=== PATIENT | female | born 1965 | race Caucasian/White ===

== ENCOUNTER 2023-05-24 15:54 | Emergency (ER) | payer OTHER, SELFPAY ==
[2023-05-24 15:57] VITALS: BP 182/117
[2023-05-24 16:01] LABS: Glucose - Point of Care 84 mg/dl (70-99)
[2023-05-24 16:23] VITALS: BMI 19.5
--- NOTE | 2023-05-24 16:27 | EDRN ---
Charlie TODD in room w/ pt at this time.
[2023-05-24 16:32] VITALS: BP 149/103
--- NOTE | 2023-05-24 16:33 | ED.GENMED ---
History of Present Illness
General
Chief Complaint: Skin Problem
Source: patient
Exam Limitations: none
Time Seen by Provider: 05/24/23 16:22
Travel History
Have you had any contact with someone who has COVID-19?: No
Do you have any symptoms of coronavirus? Fever > 100 degrees, chills, cough, shortness of breath, sore throat, loss of taste or smell, muscle aches, or headache?: No
History of Present Illness
History of Present Illness:
57-year-old female presents with sister stating that she had painful protrusion of tissue out of her rectum prior to arrival. She states when she sits on the toilet it comes out. She has been straining to move her bowels recently. She has
manic-depressive disorder and bipolar. She lives by herself. Occasionally she uses MiraLAX for constipation. There is no vomiting or fever. She notes of blood and pus coming out of her rectum. This has been going on for 2 days however the
protrusion of tissue started today
Phy Exam
Physical Exam
Physical Exam:
General: Well-appearing female no acute respiratory distress
HEENT: Normocephalic atraumatic
Heart: Regular rate and rhythm no murmurs
Lungs: Clear to auscultation bilaterally no wheezing
Abdomen is soft mildly distended but nontender normal bowel sounds no guarding or rebound Sister states her abdomen is always distended and this is not new
Rectal exam with female advertising vice president in room provides no protrusion of soft tissue. There is mild dried blood around the anal orifice. There is no palpable fluctuance.
Course
Orders/Labs/Results
Orders:
Orders
05/24/23 16:32
CT Abd/pelvis W Iv Cont Urgent
Comment:
Reason For Exam: rectal pain
05/24/23 16:42
Complete Blood Count/With Diff Urgent
Comprehensive Metabolic Panel Urgent
Urinalysis Reflex To Culture Urgent
Date Specimen was Collected: 05/24/23
Time Specimen was Collected: 16:34
Urine Microscopic Reflex Cult Urgent
Abnormal Lab Results
05/24/23
16:42
WBC 12.7 H 10^3/uL
(4.8-10.8)
MCHC 32.4 L g/dL
(33.0-37.0)
Plt Count 461 H 10^3/uL
(130-400)
Abs Immat Gran (auto) 0.1 H 10^3/uL
(0-0.05)
Absolute Neuts (auto) 7.8 H 10^3/uL
(1.4-6.5)
Absolute Monos (auto) 1.0 H 10^3/uL
(0.1-0.6)
BUN 34 H mg/dl
(7-17)
Urine Ketones Trace A
(Negative)
Ur Occult Blood Reflex Trace A
(Negative)
Leukocyte Esterase Rfl Trace A
(Negative)
05/24/23 16:42
05/24/23 16:42
Vital Signs
Initial and Last Documented VS:
Initial Vital Signs
Temp Pulse Resp BP Pulse Ox
98.2 F 105 20 182/117 97
05/24/23 15:57 05/24/23 15:57 05/24/23 15:57 05/24/23 15:57 05/24/23 15:57
Last Documented Vital Signs
Temp Pulse Resp BP Pulse Ox
98.2 F 92 16 155/79 97
05/24/23 15:57 05/24/23 18:17 05/24/23 18:17 05/24/23 18:17 05/24/23 18:17
MDM/Problems Addressed
Differential Diagnosis Includes:
Patient came in initially with complaints of painful protrusion of tissue out of her rectum. Sister describes a donut shaped flesh prolapsing. Question possible internal hemorrhoids versus rectal prolapse. She notes purulent drainage at times.
Question possible perianal abscess. Currently no protrusion of tissue or hemorrhoids noted. Will do labs and CT of the abdomen pelvis with IV contrast.
*Critical Care Note
Total Time (30-74mins, 75-104mins- exclusive of procedures): Not Applicable
Update Note
Update Note:
CT was performed which is negative for acute finding. There is a cystic mass in the pelvis that is unchanged from prior CTs. There is bladder wall thickening. Urinalysis is negative for infection. The description of patient's symptoms would
suggest either hemorrhoids or rectal prolapse. Will recommend follow-up with colorectal specialist. Stable for discharge. Also recommended daily use of MiraLAX
ED Attending Note
-
Portions of this chart may have been created with voice recognition software.� Occasional wrong word or��sound alike� substitutions may have occurred due to the inherent limitations of voice recognition software.
Discharge Plan
Departure
Patient Disposition: Home (Routine Discharge)
Date of Disposition: 05/24/23
Time of Disposition: 19:13
Patient with high blood pressure during this ER visit?: No
Discharge Problem:
Pain, rectal
Instructions: Hemorrhoids, Rectal prolapse in adults
Prescriptions:
No Action
olanzapine 5 MG tablet
5 mg PO HS
venlafaxine [Effexor XR] 150 MG capsule,extended release 24hr
300 mg PO DAILY
divalproex 500 MG tablet extended release 24 hr
500 mg PO BID
fenofibrate 160 MG tablet
160 mg PO DAILY
atenolol 25 MG tablet
25 mg PO Daily Qty: 30 0RF
cyclobenzaprine 10 mg Tablet
10 mg PO HS
metformin 500 mg Tablet
500 mg PO DAILY
clonazepam 0.5 mg Tablet
0.5 mg PO BID
omeprazole 40 mg Capsule,Delayed Release(Dr/Ec)
40 mg PO DAILY
dextroamphetamine-amphetamine [Adderall] 20 mg Tablet
20 mg PO TID
gabapentin 300 mg Capsule
300 mg PO TID
duloxetine [Cymbalta] 30 mg Capsule,Delayed Release(Dr/Ec)
30 mg PO DAILY
amoxicillin 500 mg Capsule
500 mg PO TID
Patient Comments:
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
polyethylene glycol 3350 [Miralax] 17 gram Powder In Packet
17 g PO DAILY
Referrals:
Ulises Wan MD [Active] -
Amber Norris CRNP [Family Provider] -
Activity Restrictions/Additional Instructions:
Use MiraLAX daily to prevent constipation. Please return here for worsening symptoms otherwise follow-up with colorectal specialist
Interventions
Interventions:
*Risk Screen - Suicide Last Done: 05/24/23 15:57
*General Assessment Last Done: 05/24/23 15:57
*Neglect/Abuse Screening Last Done: 05/24/23 16:27
ED- Fall Risk Assessment Last Done: 05/24/23 16:27
*ED COVID-19 Vaccine History Last Done: 05/24/23 16:27
ED-Skin Assessment Last Done: 05/24/23 16:40
[2023-05-24 16:52] LABS: % Basophils 0.9 % (0-2); % Eosinophils 2.8 % (0-6); % Immature Granulocytes 0.4 % (0-0.5); % Lymphocytes 26.7 % (20.5-51.1); % Neutrophils 61.2 % (42.2-75.2); Absolute Basophils 0.1 10^3/uL (0-0.2); Absolute Eosinophils 0.4 10^3/uL (0-0.7); Absolute Immature Granulocytes 0.1 10^3/uL (0-0.05); Absolute Lymphocytes 3.4 10^3/uL (1.2-3.4); Absolute Neutrophils 7.8 10^3/uL (1.4-6.5); Hematocrit 38.3 % (37.0-47.0); Hemoglobin 12.4 g/dL (12.0-16.0); Mean Corp Hgb Conc. 32.4 g/dL (33.0-37.0); Mean Corpuscular Hgb 27.9 pg (27.0-31.0); Mean Corpuscular Volume 86.3 fL (81.0-99.0); Mean Platelet Volume 9.5 fL (7.4-10.4); Nucleated Red Blood Cells % 0 %; Platelet Count 461 10^3/uL (130-400); Red Blood Cell Count 4.44 10^6/uL (4.20-5.40); Red Cell Dist. Width 14.5 % (11.5-14.5); White Blood Cell Count 12.7 10^3/uL (4.8-10.8)
[2023-05-24 16:55] LABS: Urine Albumin Negative (Neg - Trace); Urine Bilirubin Negative (Negative); Urine Character Clear (Clear); Urine Color Yellow; Urine Glucose Negative (Negative); Urine Ketone Trace (Negative); Urine Leukocyte Trace (Negative); Urine Nitrite Negative (Negative); Urine Occult Blood Trace (Negative); Urine Specific Gravity 1.015 (<1.030); Urine Urobilinogen Negative (Neg - 1+)
[2023-05-24 17:02] LABS: Urine Red Blood Cell 0-2 /HPF (0-2); Urine White Cell 0-2 /HPF (0-5)
[2023-05-24 17:06] LABS: ALT (SGPT) 24 U/L (0-35); AST (SGOT) 35 U/L (14-36); Albumin 4.5 g/dl (3.5-5.0); Alkaline Phosphatase 65 U/L (38-126); Blood Urea Nitrogen 34 mg/dl (7-17); Calcium 10.1 mg/dl (8.4-10.2); Carbon Dioxide 26 mmol/L (22-30); Chloride 106 mmol/L (98-107); Estimated Creatinine Clearance 78 ml/min; Glucose 86 mg/dl (70-99); Potassium 4.1 mmol/L (3.5-5.1); Sodium 139 mmol/L (135-145); Total Bilirubin 0.4 mg/dl (0.2-1.3); Total Protein 7.3 g/dl (6.3-8.2); eGFR > 60.00
--- NOTE | 2023-05-24 17:07 | PHANOTE ---
med rec note- patient does not know all her medication, sister in room, but does not know them either. patient has ecw and pharmacy records. she also came with a medication list but seems old, patient did have another med list but dated 07/04/2022
[2023-05-24 17:15] VITALS: BP 146/100
[2023-05-24 18:17] VITALS: BP 155/79
[2023-05-24 20:05] VITALS: BP 153/96
[2023-05-24 20:19] VITALS: BP 153/96
== END 2023-05-24 20:05 | disposition home or self-care (01) ==
LOC: EMR 15:54
PROVIDERS: Physician Assistant; EMERGENCY PHYSICIAN Emergency Medicine; FAMILY PHYSICIAN Nurse Practitioner Family
DX: K62.89 Other specified diseases of anus and rectum (principal); D72.829 Elevated white blood cell count, unspecified
CPT/HCPCS: 99285; 74177; 80053; 81003; 81015; 82962; 85025; Q9967

== ENCOUNTER → 2023-06-26 06:25 | Day surgery (SDC) | payer OTHER, SELFPAY ==
[2023-06-26 14:06] LABS: Glucose - Point of Care 97 mg/dl (70-99)
== END ==
LOC: GI 06:25
PROVIDERS: ATTENDING PHYSICIAN Internal Medicine Gastroenterology
DX: Z12.11 Encounter for screening for malignant neoplasm of colon (principal); Z86.010 Personal history of colon polyps; K64.8 Other hemorrhoids; K57.30 Diverticulosis of large intestine without perforation or abscess without bleeding; D12.4 Benign neoplasm of descending colon
CPT/HCPCS: 45380; 88305; 82962

== ENCOUNTER → 2023-09-25 08:54 | Outpatient (REF) | payer OTHER, SELFPAY | LOC: RCS 08:54 | PROVIDERS: ATTENDING PHYSICIAN Internal Medicine; FAMILY PHYSICIAN Nurse Practitioner Family | DX: R94.31 Abnormal electrocardiogram [ECG] [EKG] (principal) | CPT/HCPCS: 93306; Q9950 ==

== ENCOUNTER 2023-11-21 06:02 | Inpatient (IN) | payer OTHER, SELFPAY ==
[2023-08-29 09:01] LABS: Hematocrit 41.5 % (37.0-47.0); Hemoglobin 13.4 g/dL (12.0-16.0); Mean Corp Hgb Conc. 32.3 g/dL (33.0-37.0); Mean Corpuscular Hgb 28.2 pg (27.0-31.0); Mean Corpuscular Volume 87.4 fL (81.0-99.0); Mean Platelet Volume 9.6 fL (7.4-10.4); Platelet Count 333 10^3/uL (130-400); Red Blood Cell Count 4.75 10^6/uL (4.20-5.40); Red Cell Dist. Width 14.6 % (11.5-14.5); White Blood Cell Count 5.8 10^3/uL (4.8-10.8)
[2023-08-29 09:13] LABS: INR 0.97; PT 12.7 Sec (11.4-14.6)
[2023-08-29 09:14] LABS: APTT 28.8 Sec (23.4-35.0)
[2023-08-29 09:35] VITALS: BMI 20.3
[2023-08-29 09:37] LABS: ALT (SGPT) 31 U/L (0-35); AST (SGOT) 39 U/L (14-36); Albumin 5.1 g/dl (3.5-5.0); Alkaline Phosphatase 62 U/L (38-126); Blood Urea Nitrogen 37 mg/dl (7-17); Carbon Dioxide 27 mmol/L (22-30); Chloride 106 mmol/L (98-107); Estimated Creatinine Clearance 73 ml/min; Glucose 120 mg/dl (70-99); Potassium 5.5 mmol/L (3.5-5.1); Sodium 143 mmol/L (135-145); Total Bilirubin 0.4 mg/dl (0.2-1.3); Total Protein 7.7 g/dl (6.3-8.2); eGFR > 60.00
--- NOTE | 2023-08-29 10:29 | PTCARENOTE ---
Patients 08/28 anette Lim @ Dr. Keane office notified
[2023-08-29 11:46] LABS: Glycohemoglobin (HgbA1c) 6.2 % (4.0-5.6)
--- NOTE | 2023-08-29 12:53 | SUR.OPER ---
Patients 08/28 potassium 5.5, ECG abnormal, reviewed by Dr. Washington. Dr. Washington requests PCP clearance for additional evaluation regarding ECG, Carina @ Dr. Sage office notified.
[2023-11-21] VITALS (14 sets, daily range): BP systolic 105–140; BP diastolic 55–84; BMI 20.3
[2023-11-21 06:41] LABS: Glucose - Point of Care 103 mg/dl (70-99)
[2023-11-21] MEDS: ENTEREG 12 MG PO (06:46)
[2023-11-21] MEDS: TYLENOL 1000 MG PO (06:46)
[2023-11-21] MEDS: HEPARIN 5000 UNITS SC (06:47)
[2023-11-21] MEDS: NORMOSOL-R/PLASMALYTE-A 1000 IV ×3 (06:47→22:00)
--- NOTE | 2023-11-21 10:05 | W.IMMPOSTOP ---
Surgical Immed Post Op Note
-
Primary Surgeon: Jeffrey Wan MD
Spar Machine Operator Helper: URIEL Woodruff
Pre-op Diagnosis: Rectal prolapse
Post-op Diagnosis: Same
Procedure Performed: Robotic ventral rectopexy with mesh
Anesthesia Type: GET
Specimen / Cultures: None
Estimated Blood Loss: 10cc
Complications: None
Operative Findings: Full-thickness rectal prolapse
10 x 3 cm Phasix mesh
Normal sigmoidoscopy.
Patient's updated.
[2023-11-21 10:20] LABS: Glucose - Point of Care 150 mg/dl (70-99)
[2023-11-21] MEDS: ZOFRAN 4 MG IV (10:37)
[2023-11-21] MEDS: DILAUDID 0.5 MG IV ×3 (10:38→20:09)
--- NOTE | 2023-11-21 12:07 | PTCARENOTE ---
Patient received from PACU in bed; Patient on 2L nasal cannula initially, now on room air with oxygen saturation of 97%; Patient states pain is a six out of ten; Five laparoscopic open to air with surgical glue present; Patient denies nausea at this
time; Spouse at bedside; Bed in lowest position wheels locked; Call conte within reach; Patient and spouse oriented to room and unit; Assessment ongoing
[2023-11-21] MEDS: TYLENOL PO ×4 (12:13→23:18)
[2023-11-21] MEDS: TORADOL 15 MG IV ×3 (12:23→23:11)
[2023-11-21] MEDS: NEURONTIN 300 MG PO ×2 (15:06→21:49)
[2023-11-21] MEDS: FLEXERIL 10 MG PO ×2 (15:06→21:49)
[2023-11-21] MEDS: NON-FORMULARY ITEM 20 MG PO (16:01)
[2023-11-21] MEDS: DEPAKOTE ER (24 HR RELEASE) 500 MG PO (20:05)
[2023-11-21] MEDS: KLONOPIN 0.5 MG PO (20:05)
[2023-11-21] MEDS: NON-FORMULARY ITEM PO (21:49)
[2023-11-21] MEDS: ZYPREXA 5 MG PO (21:52)
[2023-11-22 02:55] VITALS: BP 120/79
[2023-11-22] MEDS: TYLENOL PO ×2 (04:22→20:00)
[2023-11-22] MEDS: TORADOL 15 MG IV ×4 (04:24→22:01)
[2023-11-22 05:03] VITALS: BMI 21.0
[2023-11-22 06:45] VITALS: BP 124/71
[2023-11-22 06:46] LABS: % Basophils 0.4 % (0-2); % Eosinophils 1.7 % (0-6); % Immature Granulocytes 0.4 % (0-0.5); % Lymphocytes 28.1 % (20.5-51.1); % Monocytes 9.1 % (1.7-9.3); % Neutrophils 60.3 % (42.2-75.2); Absolute Eosinophils 0.1 10^3/uL (0-0.7); Absolute Lymphocytes 2.3 10^3/uL (1.2-3.4); Absolute Monocytes 0.7 10^3/uL (0.1-0.6); Absolute Neutrophils 4.8 10^3/uL (1.4-6.5); Hemoglobin 10.6 g/dL (12.0-16.0); Mean Corp Hgb Conc. 33.1 g/dL (33.0-37.0); Mean Corpuscular Hgb 27.5 pg (27.0-31.0); Mean Corpuscular Volume 82.9 fL (81.0-99.0); Mean Platelet Volume 9.6 fL (7.4-10.4); Nucleated Red Blood Cells % 0 %; Platelet Count 230 10^3/uL (130-400); Red Blood Cell Count 3.86 10^6/uL (4.20-5.40); Red Cell Dist. Width 13.8 % (11.5-14.5)
[2023-11-22 06:50] VITALS: BP 122/69
[2023-11-22 07:04] LABS: Blood Urea Nitrogen 18 mg/dl (7-17); Calcium 7.9 mg/dl (8.4-10.2); Carbon Dioxide 27 mmol/L (22-30); Chloride 103 mmol/L (98-107); Estimated Creatinine Clearance 74 ml/min; Glucose 96 mg/dl (70-99); Potassium 3.4 mmol/L (3.5-5.1); Sodium 140 mmol/L (135-145); eGFR > 60.00
[2023-11-22] MEDS: NORMOSOL-R/PLASMALYTE-A 1000 IV (09:09)
[2023-11-22] MEDS: FLEXERIL 10 MG PO ×3 (09:10→21:50)
[2023-11-22] MEDS: CYMBALTA DELAYED RELEASE 30 MG PO (09:10)
[2023-11-22] MEDS: KCL 40 MEQ PO (09:11)
[2023-11-22] MEDS: TENORMIN 25 MG PO (09:11)
[2023-11-22] MEDS: NEURONTIN 300 MG PO ×3 (09:11→21:50)
[2023-11-22] MEDS: ENTEREG 12 MG PO ×2 (09:11→20:00)
[2023-11-22] MEDS: DEPAKOTE ER (24 HR RELEASE) 500 MG PO ×2 (09:12→19:59)
[2023-11-22] MEDS: KLONOPIN 0.5 MG PO ×2 (09:12→20:00)
[2023-11-22] MEDS: EFFEXOR XR 300 MG PO (09:12)
[2023-11-22] MEDS: PROTONIX 40 MG PO (09:12)
[2023-11-22] MEDS: NON-FORMULARY ITEM 20 MG PO ×2 (09:13→16:35)
[2023-11-22] MEDS: NON-FORMULARY ITEM 160 MG PO (09:13)
[2023-11-22] MEDS: TYLENOL 650 MG PO ×3 (09:14→16:34)
--- NOTE | 2023-11-22 09:54 | W.PN.GS2 ---
Today's Communication / Plan
-
Void trial
Assessment / Plan
-
57 yo female with a h/o rectal prolapse now POD #1 robotic ventral rectopexy with mesh
AFVSS
Labs stable post op
Mild hypokalemia: replaced
Await bowel recovery
--Continue CLD will ADAT once passing flatus
--D/C hdz for voiding trial
--Multimodal analgesics
--OOB/Ambulate
--C/W home meds
--Lovenox 40mg sq daily and scds for vte ppx
Subjective Data
-
Date of Service: November 22, 2023
Patient seen and examined at bedside with Dr. Walsh. Denies n/v. Tolerating clears. Denies passage of flatus as of yet. Pain is minimal but sore with movement.
Objective Data
-
Intake and Output
11/21/23 11/22/23 11/23/23
06:59 06:59 06:59
Intake Total 3260 / 3260
Output Total 1750 / 1750
Balance 1510 / 1510
Intake:
Oral fluids 960 / 960
IV fluids (Total) 2300 / 2300
Normosol 300 / 300
Output:
Urine, Hdz 1750 / 1750
Vital Signs
Temp Pulse Resp BP Pulse Ox
98.8 F 99 16 122/69 3
11/22/23 06:50 11/22/23 09:11 11/22/23 06:50 11/22/23 09:11 11/22/23 06:50
Lab Results
11/22/23 06:29
11/22/23 06:29
Calcium 7.9 mg/dl (8.4-10.2) L 11/22/23 06:29
Total Bilirubin 0.4 mg/dl (0.2-1.3) 08/29/23 07:35
AST 39 U/L (14-36) H 08/29/23 07:35
ALT 31 U/L (0-35) 08/29/23 07:35
Alkaline Phosphatase 62 U/L (38-126) 08/29/23 07:35
Total Protein 7.7 g/dl (6.3-8.2) 08/29/23 07:35
Albumin 5.1 g/dl (3.5-5.0) H 08/29/23 07:35
Physical Exam
-
NAD
Resp nonlabored
ABD soft rounded, mild distention, mild incisional tenderness, PICKER TENDER, no guarding
Incisions well approximated with intact dermabond dressing
Hdz with clear, yellow urine
[2023-11-22 11:00] VITALS: BP 147/77
[2023-11-22 15:06] VITALS: BP 131/76
--- NOTE | 2023-11-22 15:26 | CM ---
CM met with pt and spouse at bedside.
Pt lives with spouse in a 1 SH. Ind with amb using no AD. Ind with ADL's.
Confirmed PCP is Amber Norris and pharmacy is [facility] on [address] as well as a mail order plan.
Pt reports having difficulty at home managing her medications remembering which ones to take and forgetting if she took. SHe is interested in having a VN follow up to review medications. Perhaps would benefit from a SW to provide any resources to
assist.
WIll ask for a VN order and send referral. Offered choice of agency. Preference is for [facility].
[2023-11-22] MEDS: ZYPREXA 5 MG PO (21:51)
[2023-11-22] MEDS: NON-FORMULARY ITEM PO (22:02)
[2023-11-22 23:00] VITALS: BP 127/74
[2023-11-23] MEDS: TYLENOL PO ×2 (00:03→04:46)
[2023-11-23] MEDS: TORADOL 15 MG IV ×4 (05:29→22:09)
[2023-11-23 06:00] VITALS: BMI 21.5
[2023-11-23 06:33] LABS: Hematocrit 33.3 % (37.0-47.0); Mean Corpuscular Hgb 27.8 pg (27.0-31.0); Mean Corpuscular Volume 84.1 fL (81.0-99.0); Mean Platelet Volume 10.3 fL (7.4-10.4); Platelet Count 233 10^3/uL (130-400); Red Blood Cell Count 3.96 10^6/uL (4.20-5.40); White Blood Cell Count 5.8 10^3/uL (4.8-10.8)
[2023-11-23 07:06] LABS: Blood Urea Nitrogen 19 mg/dl (7-17); Calcium 9.1 mg/dl (8.4-10.2); Carbon Dioxide 28 mmol/L (22-30); Chloride 108 mmol/L (98-107); Estimated Creatinine Clearance 65 ml/min; Glucose 120 mg/dl (70-99); Sodium 143 mmol/L (135-145); eGFR > 60.00
[2023-11-23 07:19] VITALS: BP 129/96
[2023-11-23] MEDS: ENTEREG 12 MG PO ×2 (08:10→20:13)
[2023-11-23] MEDS: FLEXERIL 10 MG PO ×3 (08:10→22:08)
[2023-11-23] MEDS: KLONOPIN 0.5 MG PO ×2 (08:10→20:12)
[2023-11-23] MEDS: NEURONTIN 300 MG PO ×3 (08:10→22:08)
[2023-11-23] MEDS: CYMBALTA DELAYED RELEASE 30 MG PO (08:10)
[2023-11-23] MEDS: EFFEXOR XR 300 MG PO (08:10)
[2023-11-23] MEDS: PROTONIX 40 MG PO (08:10)
[2023-11-23] MEDS: TYLENOL 650 MG PO ×4 (08:10→20:12)
[2023-11-23] MEDS: TENORMIN 25 MG PO (08:11)
[2023-11-23] MEDS: DEPAKOTE ER (24 HR RELEASE) 500 MG PO ×2 (08:11→20:12)
[2023-11-23] MEDS: NON-FORMULARY ITEM 160 MG PO (08:15)
[2023-11-23] MEDS: NON-FORMULARY ITEM 20 MG PO ×3 (08:16→22:13)
--- NOTE | 2023-11-23 09:44 | W.PN.GS2 ---
Today's Communication / Plan
-
dispo planning
Assessment / Plan
-
57 yo female with a h/o rectal prolapse now POD #2 robotic ventral rectopexy with mesh
AFVSS
Labs stable post op
Passing flatus/stools but with some distention noted
--Continue LRD
--Check XR abd
--Multimodal analgesics
--OOB/Ambulate
--C/W home meds
--Lovenox 40mg sq daily and scds for vte ppx
Tentative d/c later today vs tomorrow pending diet tolerance/bowel recovery
Subjective Data
-
Date of Service: November 23, 2023
Patient seen and examined at bedside with Dr. Walsh. Denies n/v. Tolerating diet. Passing flatus and some stools. Initial stool with some blood in it. Notes some bloating, denies pain.
Objective Data
-
Intake and Output
11/22/23 11/23/23 11/24/23
06:59 06:59 06:59
Intake Total 3260 / 3260 1010 / 1010
Output Total 1750 / 1750 1100 / 1100
Balance 1510 / 1510 -90 / -90
Intake:
Oral fluids 960 / 960 360 / 360
IV fluids (Total) 2300 / 2300 650 / 650
Normosol 300 / 300
Output:
Urine, Gordon 1750 / 1750 1100 / 1100
Other:
Number of approximated MODERATE 1
amounts of urine
Number of approximated LARGE 1
amounts of urine
Number of unmeasured liquid
stools
Rectum 3
Vital Signs
Temp Pulse Resp BP Pulse Ox
98.3 F 88 14 129/96 96
11/23/23 07:19 11/23/23 08:11 11/23/23 07:19 11/23/23 08:11 11/23/23 07:19
Lab Results
11/23/23 06:11
11/23/23 06:11
Calcium 9.1 mg/dl (8.4-10.2) 11/23/23 06:11
Total Bilirubin 0.4 mg/dl (0.2-1.3) 08/29/23 07:35
AST 39 U/L (14-36) H 08/29/23 07:35
ALT 31 U/L (0-35) 08/29/23 07:35
Alkaline Phosphatase 62 U/L (38-126) 08/29/23 07:35
Total Protein 7.7 g/dl (6.3-8.2) 08/29/23 07:35
Albumin 5.1 g/dl (3.5-5.0) H 08/29/23 07:35
Physical Exam
-
NAD
Resp nonlabored
ABD soft rounded, mild distention but no significant tympany, mild incisional tenderness, SENIOR HR GENERALIST, no guarding
Incisions well approximated with intact dermabond dressing
[2023-11-23 15:48] VITALS: BP 153/91
[2023-11-23] MEDS: ZYPREXA 5 MG PO (22:08)
[2023-11-23] MEDS: FLUSH (NSS) 2 FLUSH IV (22:11)
[2023-11-23 23:49] VITALS: BP 171/87
[2023-11-24 00:40] VITALS: BP 132/80
[2023-11-24] MEDS: TYLENOL PO ×2 (01:01→05:25)
[2023-11-24] MEDS: TORADOL 15 MG IV ×3 (05:25→16:42)
[2023-11-24] MEDS: FLUSH (NSS) 2 FLUSH IV (05:27)
[2023-11-24 06:00] VITALS: BMI 21.4
[2023-11-24 08:09] VITALS: BP 164/95
[2023-11-24 09:35] VITALS: BP 150/82
[2023-11-24] MEDS: NON-FORMULARY ITEM 160 MG PO (09:41)
[2023-11-24] MEDS: NON-FORMULARY ITEM 20 MG PO ×2 (09:41→17:01)
[2023-11-24] MEDS: NEURONTIN 300 MG PO ×2 (09:43→16:42)
[2023-11-24] MEDS: DEPAKOTE ER (24 HR RELEASE) 500 MG PO (09:43)
[2023-11-24] MEDS: EFFEXOR XR 300 MG PO (09:43)
[2023-11-24] MEDS: CYMBALTA DELAYED RELEASE 30 MG PO (09:44)
[2023-11-24] MEDS: KLONOPIN 0.5 MG PO (09:44)
[2023-11-24] MEDS: TYLENOL 650 MG PO ×3 (09:44→16:42)
[2023-11-24] MEDS: TENORMIN 25 MG PO (09:44)
[2023-11-24] MEDS: PROTONIX 40 MG PO (09:44)
[2023-11-24] MEDS: FLEXERIL 10 MG PO ×2 (09:44→17:01)
[2023-11-24] MEDS: ENTEREG 12 MG PO (09:44)
--- NOTE | 2023-11-24 11:14 | W.PN.CRS1 ---
Today's Communication / Plan
-
discharge
Assessment/Plan
-
57 yo female with a h/o rectal prolapse now POD #3 robotic ventral rectopexy with mesh
AFVSS
Passing flatus/stools
--Restart low residue diet
--Multimodal analgesics
--OOB/Ambulate
--C/W home meds
--Lovenox 40mg sq daily and scds for vte ppx
-- Okay for discharge today. All discharge instructions discussed with patient including medication, activity levels, and follow up. All questions answered.
Subjective Data
Subjective Data
Date of Service: November 24, 2023
Patient states she feels well. She had a large bowel movement this morning and feels much better. She currently has no complaints. She would like to go home.
Objective Data
-
Vital Signs
Temp Pulse Resp BP Pulse Ox
99.3 F 86 16 150/82 98
11/24/23 08:09 11/24/23 09:35 11/24/23 09:35 11/24/23 09:35 11/24/23 08:09
Intake & Output
11/23/23 11/24/23 11/25/23
06:59 06:59 06:59
Intake Total 1010 / 1010 1200 / 1200
Output Total 1100 / 1100
Balance -90 / -90 1200 / 1200
Intake:
Oral fluids 360 / 360 1200 / 1200
IV fluids (Total) 650 / 650
Output:
Urine, Gordon 1100 / 1100
Other:
Number of approximated MODERATE 1 3
amounts of urine
Number of approximated LARGE 1
amounts of urine
Number of unmeasured liquid
stools
Rectum 3
Lab Results
11/23/23 06:11
11/23/23 06:11
Physical Exam
-
General: No Acute Distress and AOx3
Abdomen: Soft, Non Distended and Non Tender
Skin: Warm and Dry
Incision: Clear, Dry, Intact
--- NOTE | 2023-11-24 11:19 | W.DS.TRANS ---
DC Summary - Cereal Miller
-
Discharge Instructions:
Sleep Apnea Risk Low
Discharge Diagnosis/Procedures robotic rectopexy
Diet Diabetic, Carb Controlled
Activity No strenuous activity
Additional Activity No lifting over 10lbs (gallon of milk)
Driving Restrictions No driving for 1 week
Bathing Restrictions OK to Shower
Wound Care Allow glue to naturally fall off. Ok to shower
and wash abdomen gently with soap and water.
Instructions:
Stand-Alone Forms:
Changes to Home Medications: Yes
Discharge Medications:
DC Medications w/original date entered in Roomlr
atenolol 25 mg tablet 25 mg PO Daily #30 tabs 07/20/15
divalproex 500 mg tablet,extended release 24 hr 500 mg PO BID Mental Health/Anxiety 07/20/15
fenofibrate 160 mg tablet 160 mg PO DAILY High Cholesterol 07/20/15
olanzapine 5 mg tablet 5 mg PO HS 07/20/15
venlafaxine 150 mg capsule,extended release 24 hr (Effexor XR) 300 mg PO DAILY 07/20/15
clonazepam 0.5 mg tablet 0.5 mg PO BID Mental Health/Anxiety 05/24/23
cyclobenzaprine 10 mg tablet 10 mg PO TID Muscle Spasms 05/24/23
dextroamphetamine-amphetamine 20 mg tablet (Adderall) 20 mg PO TID Neurological Condition 05/24/23
duloxetine 30 mg capsule,delayed release (Cymbalta) 30 mg PO DAILY Depression 05/24/23
gabapentin 300 mg capsule 300 mg PO TID Mental Health/Anxiety 05/24/23
metformin 500 mg tablet 500 mg PO DAILY Diabetes 05/24/23
omeprazole 40 mg capsule,delayed release 40 mg PO DAILY 05/24/23
Medical Cannabis 1 dose inhalation PRN PRN anxiety/pain 08/28/23
amphetamine sulfate 20 mg disintegrating tablet 40 mg PO DAILY 11/21/23
ondansetron 4 mg disintegrating tablet 4 mg PO DAILY 11/21/23
oxycodone 5 mg tablet 5 mg PO Q6H PRN Pain #10 tabs 11/24/23
Home Medication Changes
oxycodone 5 mg tablet 5 mg PO Q6H PRN Pain #10 tabs 11/24/23
Pending Results: No
--- NOTE | 2023-11-24 11:51 | CM ---
Reviewed the chart notes and spoke with the patient at the bedside. The patient is interested in VN services for medication management and education. VN order obtained. Referral sent to VN. The patient's spouse will provide transportation
home. continues to be available to patient/family and is monitoring medical plan for needs at discharge.
Plan: Discharge to home with VN services today.
--- NOTE | 2023-11-24 13:01 | VNURNOTE ---
Received referral from Mayte Houser CM.
Home Health Liaison spoke w/patient to discuss [facility] nurse/therapy, visits, schedule and homebound status. Patient is agreeable and understands that visits at home will be 2-3 x per week to assess and teach medical management. Patient is aware that
[facility] will contact them for start of care in 1-2 days after discharge from . [facility] referral accepted in [facility] Port.
[2023-11-24 16:04] VITALS: BP 145/79
[2023-11-24 20:04] LABS: Hepatitis C Antibody Negative (Negative)
== END 2023-11-24 18:03 | disposition home health service (06) | DRG 331 ==
LOC: 2 SOUTH 06:02
PROVIDERS: Registered Nurse; ADMITTING PHYSICIAN Surgery; FAMILY PHYSICIAN Nurse Practitioner Family
PROC: 0DSP8ZZ Reposition Rectum, Via Natural or Artificial Opening Endoscopic (ICD-10-PCS; 2023-11-21)
PROC: 0DUP8JZ Supplement Rectum with Synthetic Substitute, Via Natural or Artificial Opening Endoscopic (ICD-10-PCS; 2023-11-21)
DX: K62.3 Rectal prolapse (principal)
CPT/HCPCS: 36415; 74018; 80048; 80053; 82962; 83036; 85025; 85027; 85610; 85730; 86803; 86850; 86900; 86901; 93005; 99406; C1781; J1335